=== PATIENT | female | born 1985 | race Caucasian/White ===

== ENCOUNTER 2018-03-22 16:19 | Emergency (ER) | payer OTHER ==
[~2018-03-22] VITALS: Ht 160 cm; Wt 75.0 kg
[2018-03-22 17:04] LABS: CLARITY URINE CLEAR (CLEAR); COLOR URINE YELLOW (YELLOW); KETONES URINE NEGATIVE (NEGATIVE); LEUKOCYTE ESTERASE URINE NEGATIVE (NEGATIVE); NITRITE URINE NEGATIVE (NEGATIVE); OCCULT BLOOD URINE NEGATIVE (NEGATIVE); PH URINE 7.5 (4.5-8.0); PROTEIN URINE NEGATIVE (NEGATIVE); SPECIFIC GRAVITY URINE 1.014 (1.005-1.030)
[2018-03-22] MEDS ORDERED: PREDNISONE 20MG TABLET PO STA (17:57)
[2018-03-22] MEDS ORDERED: DIPHENHYDRAMINE 25MG CAPSULE PO ONE (18:00)
[2018-03-22] MEDS ORDERED: FAMOTIDINE 20MG TABLET PO ONE (18:00)
[2018-03-22] MEDS ORDERED: ACETAMINOPHEN 325MG TABLET PO ONE (18:00)
[2018-03-22 18:32] LABS: BASOPHILS % 0.7 % (0.0-2.0); EOSINOPHILS % 1.8 % (0.0-5.0); HEMATOCRIT. 42.5 % (36.0-48.0); HEMOGLOBIN. 14.9 g/dL (12.0-16.0); LYMPHOCYTES % 20.5 % (20.0-50.0); MEAN CORPUSCULAR HEMOGLOBIN 32.5 pg (28.0-32.0); MEAN CORPUSCULAR VOLUME 92.7 fL (81.0-99.0); MEAN PLATELET VOLUME 8.9 fl (7.4-10.4); MONOCYTES % 7.3 % (2.0-8.0); NEUTROPHILS % 69.7 % (40.0-76.0); PLATELET 290 x1000/uL (130-400); RED BLOOD CELL COUNT 4.59 mill/uL (4.2-5.4)
[2018-03-22 18:37] LABS: CHLORIDE 102 mEq/L (98-107)
[2018-03-22 18:43] LABS: HCG SCREEN NEGATIVE
[2018-03-22 18:44] LABS: PROTHROMBIN TIME 10.2 sec (9.4-11.6)
[2018-03-22 19:10] VITALS: BP 126/89
== END 2018-03-22 21:00 | disposition home or self-care (01) ==
LOC: ER 18:43
DX: T39.315A Adverse effect of propionic acid derivatives, initial encounter (principal); J32.0 Chronic maxillary sinusitis; Y92.89 Other specified places as the place of occurrence of the external cause
CPT/HCPCS: 36415; 70490; 80053; 81003; 84703; 85025; 85610; 87070; 87430; 99285; J7512; Q0163

== ENCOUNTER 2021-08-04 07:08 | Emergency (ER) | payer OTHER ==
[~2021-08-04] VITALS: Ht 157.5 cm; Wt 78.5 kg
[2021-08-04] MEDS ORDERED: IBUPROFEN 400MG TABLET PO ONE (07:45)
[2021-08-04] MEDS ORDERED: ACETAMINOPHEN 325MG TABLET PO ONE (07:45)
[2021-08-04 07:53] VITALS: BP 135/77
[2021-08-04] MEDS ORDERED: TOPUD PO (09:30)
== END 2021-08-04 10:01 | disposition home or self-care (01) ==
LOC: ER 07:08
DX: M79.18 Myalgia, other site (principal); Z88.6 Allergy status to analgesic agent
CPT/HCPCS: 70486; 73070; 73100; 81025; 99284

== ENCOUNTER 2021-08-06 19:37 | Emergency (ER) | payer OTHER ==
[~2021-08-06] VITALS: Ht 154.9 cm; Wt 78.0 kg
[~2021-08-06 19:37] MED LIST: TOPUD PO
[2021-08-06] MEDS ORDERED: ACETAMINOPHEN 325MG TABLET PO ONE (20:45)
[2021-08-06 21:01] LABS: BASOPHILS % 0.6 % (0.0-2.0); EOSINOPHILS % 2.8 % (0.0-5.0); HEMATOCRIT. 37.6 % (36.0-48.0); HEMOGLOBIN. 13.4 g/dL (12.0-16.0); LYMPHOCYTES % 22.6 % (20.0-50.0); MEAN CORPUSCULAR HEMOGLOBIN 32.4 pg (28.0-32.0); MEAN CORPUSCULAR VOLUME 90.5 fL (81.0-99.0); MEAN PLATELET VOLUME 8.2 fl (7.4-10.4); MONOCYTES % 7.1 % (2.0-8.0); NEUTROPHILS % 66.9 % (40.0-76.0); PLATELET 323 x1000/uL (130-400); RED BLOOD CELL COUNT 4.15 mill/uL (4.2-5.4)
[2021-08-06 21:09] LABS: CHLORIDE 104 mEq/L (98-107)
[2021-08-06 21:22] LABS: CLARITY URINE CLEAR (CLEAR); COLOR URINE YELLOW (YELLOW); KETONES URINE NEGATIVE (NEGATIVE); LEUKOCYTE ESTERASE URINE NEGATIVE (NEGATIVE); NITRITE URINE NEGATIVE (NEGATIVE); OCCULT BLOOD URINE NEGATIVE (NEGATIVE); PROTEIN URINE NEGATIVE (NEGATIVE); SPECIFIC GRAVITY URINE 1.013 (1.005-1.030)
[2021-08-06] MEDS ORDERED: CEPH500C2 MT (22:07)
[2021-08-06 22:20] VITALS: BP 150/97
== END 2021-08-06 22:43 | disposition home or self-care (01) ==
LOC: ER 19:37
DX: L03.113 Cellulitis of right upper limb (principal); Z88.6 Allergy status to analgesic agent; Z88.8 Allergy status to other drugs, medicaments and biological substances
CPT/HCPCS: 36415; 80053; 81003; 81025; 83605; 85025; 99283

== ENCOUNTER 2022-03-24 09:03 | Emergency (ER) | payer OTHER ==
[~2022-03-24] VITALS: Ht 162.6 cm; Wt 60.0 kg
[~2022-03-24 09:03] MED LIST changes: +CEPH500C2 MT
[2022-03-24 09:27] VITALS: BP 132/96
[2022-03-24] MEDS ORDERED: LIDOCAINE HCL/EPINEPHRINE 1%-EPI 1:100,000 50 ML VIAL INFIL ONE (09:45)
[2022-03-24] MEDS ORDERED: ACETAMINOPHEN 325MG TABLET PO ONE (10:00)
[2022-03-24] MEDS ORDERED: SULF1TAB48 MT (11:11)
== END 2022-03-24 11:48 | disposition home or self-care (01) ==
LOC: ER 09:03
DX: L02.415 Cutaneous abscess of right lower limb (principal); Z88.6 Allergy status to analgesic agent; Z88.8 Allergy status to other drugs, medicaments and biological substances
CPT/HCPCS: 10060; 99282; Z7610

== ENCOUNTER 2022-03-26 07:22 | Emergency (ER) | payer OTHER ==
[~2022-03-26] VITALS: Ht 154.9 cm; Wt 77.0 kg
[~2022-03-26 07:22] MED LIST changes: +SULF1TAB48 MT
[2022-03-26 07:27] VITALS: BP 128/78
[2022-03-26] MEDS ORDERED: LIDOCAINE HCL/EPINEPHRINE 1%-EPI 1:100,000 50 ML VIAL INFIL ONE (07:45)
== END 2022-03-26 09:44 | disposition left against medical advice (07) ==
LOC: ER 07:22
DX: Z48.00 Encounter for change or removal of nonsurgical wound dressing (principal); Z88.6 Allergy status to analgesic agent; Z88.8 Allergy status to other drugs, medicaments and biological substances
CPT/HCPCS: 99281

== ENCOUNTER 2022-08-09 06:13 | Emergency (ER) | payer OTHER ==
[~2022-08-09] VITALS: Ht 162.6 cm; Wt 73.0 kg
[2022-08-09 06:26] VITALS: BP 130/88
[2022-08-09 09:32] LABS: BASOPHILS % 0.4 % (0.0-2.0); EOSINOPHILS % 0.1 % (0.0-5.0); HEMATOCRIT. 45.7 % (36.0-48.0); HEMOGLOBIN. 16.2 g/dL (12.0-16.0); LYMPHOCYTES % 12.8 % (20.0-50.0); MEAN CORPUSCULAR HEMOGLOBIN 32.3 pg (28.0-32.0); MEAN CORPUSCULAR VOLUME 91.4 fL (81.0-99.0); MEAN PLATELET VOLUME 9.2 fl (7.4-10.4); MONOCYTES % 5.8 % (2.0-8.0); NEUTROPHILS % 80.9 % (40.0-76.0); PLATELET 299 x1000/uL (130-400); RED CELL DISTRIBUTION WIDTH 13.4 % (11.6-14.6)
[2022-08-09 09:40] LABS: CHLORIDE 102 mEq/L (98-107); PROTHROMBIN TIME 10.4 sec (9.6-11.0)
[2022-08-09 09:42] LABS: HCG SCREEN NEGATIVE
[2022-08-09 10:00] LABS: CLARITY URINE CLEAR (CLEAR); COLOR URINE YELLOW (YELLOW); KETONES URINE NEGATIVE (NEGATIVE); LEUKOCYTE ESTERASE URINE NEGATIVE (NEGATIVE); NITRITE URINE NEGATIVE (NEGATIVE); OCCULT BLOOD URINE 2+ (NEGATIVE); PROTEIN URINE TRACE (NEGATIVE); SPECIFIC GRAVITY URINE 1.012 (1.005-1.030); UROBILINOGEN URINE 0.2 E.U./dL (0.2-1.0)
[2022-08-09] MEDS ORDERED: T3 PO (10:54)
== END 2022-08-09 11:21 | disposition home or self-care (01) ==
LOC: ER 06:42
DX: N20.0 Calculus of kidney (principal); Z88.6 Allergy status to analgesic agent; Z88.8 Allergy status to other drugs, medicaments and biological substances
CPT/HCPCS: 36415; 74176; 80053; 81003; 81025; 84703; 85025; 99284